=== PATIENT | female | born 1950 | race Hispanic/Latino ===

== ENCOUNTER 2018-06-29 20:17 | Observation (INO) | payer BC, MEDICARE, OTHER ==
[~2018-06-29] VITALS: Ht 152.4 cm; Wt 64.6 kg
[~2018-06-29 20:17] MED LIST: ASPIRIN EC81 MG PO; LIPITOR20 MG PO; LISINOPRIL10 MG PO; LOPRESSOR25 MG PO; METFORMIN HCL500 MG PO; ULTRAM50 MG PO
--- NOTE | 2018-06-29 21:33 | Diagnostic Imaging Report ---
EXAMINATION: CHEST SINGLE (NOT PORTABLE) INDICATION: Chest pain. COMPARISON: Chest x-ray 10/22/2011 FINDINGS: AP view TUBES and LINES: None. LUNGS: Lungs are well inflated. Lungs are clear. There is no evidence of pneumonia or pulmonary edema. PLEURA: No pleural effusion or pneumothorax. HEART AND MEDIASTINUM: Tortuous aorta with calcifications. The cardiac silhouette is unremarkable. BONES AND SOFT TISSUES: No acute osseous lesion. Soft tissues are unremarkable. UPPER ABDOMEN: No free air under the diaphragm. IMPRESSION: No acute thoracic abnormality. Signed by: DR. Dirk Laboy MD on 06/29/2018 9:29 PM
[2018-06-29] MEDS ORDERED: KETOROLAC TROMETHAMINE 30 MG/ML VIAL IV STA (21:59)
[2018-06-29 22:19] LABS: BASOPHILS # (AUTO) 0.1 (0.0-0.1); BASOPHILS % 0.6 % (0.0-1.0); EOSINOPHILS # (AUTO) 0.8 (0.0-0.4); EOSINOPHILS % 10.4 % (0.0-6.0); HEMATOCRIT 38.6 % (34.2-44.1); HEMOGLOBIN 13.3 g/dL (12.0-16.0); LYMPHOCYTES # (AUTO) 3.4 (1.0-3.2); LYMPHOCYTES % 42.3 % (18.0-39.1); MEAN CORPUSCULAR HEMOGLOBIN 31.5 pg (28-32); MEAN CORPUSCULAR HGB CONC 34.5 g/dL (31-35); MEAN CORPUSCULAR VOLUME 91.5 fL (81-99); MONOCYTES # (AUTO) 0.5 (0.2-0.8); MONOCYTES % 5.8 % (4.4-11.3); NEUTROPHILS # (AUTO) 3.3 (2.1-6.9); NEUTROPHILS % 40.6 % (38.7-80.0); PLATELET COUNT 161 x10e3/uL (140-360); RED BLOOD COUNT 4.22 x10e6/uL (3.6-5.1); RED CELL DISTRIBUTION WIDTH 12.8 % (11.7-14.4)
[2018-06-29 22:24] LABS: INR 0.9
[2018-06-29 22:34] LABS: ALANINE AMINOTRANSFERASE 59 IU/L (0-55); ALKALINE PHOSPHATASE 62 IU/L (40-150); ANION GAP 15.8 mmol/L (8-16); BLOOD UREA NITROGEN 13 mg/dL (7-26); BUN/CREATININE RATIO 16 (6-25); CALCIUM 9.9 mg/dL (8.4-10.2); CARBON DIOXIDE 22 mmol/L (22-29); CHLORIDE 102 mmol/L (98-107); CREATINE KINASE 86 IU/L (29-168); CREATININE, SERUM 0.81 mg/dL (0.57-1.11); EST GLOMERULAR FILTRATION RATE > 60 ML/MIN (60-); GLUCOSE 162 mg/dL (74-118); POTASSIUM 3.8 mmol/L (3.5-5.1); SODIUM 136 mmol/L (136-145)
[2018-06-29 23:51] LABS: BACTERIA,URINE RARE /HPF; BILIRUBIN,URINE NEGATIVE (NEGATIVE); CLARITY,URINE HAZY (CLEAR); COLOR,URINE YELLOW (YELLOW); EPITHELIAL CELLS,URINE RARE /LPF; KETONES,URINE NEGATIVE (NEGATIVE); LEUKOCYTE ESTERASE ,URINE NEGATIVE (NEGATIVE); NITRITE,URINE NEGATIVE (NEGATIVE); PROTEIN,URINE DIPSTICK NEGATIVE (NEGATIVE); RBC,URINE 0-5 /HPF (0-5); URINE UROBILINOGEN 0.2 mg/dL (0.2 - 1)
[2018-06-30] VITALS (14 sets, daily range): BP systolic 124–165; BP diastolic 64–86
[2018-06-30] MEDS ORDERED: MORPHINE SULFATE 2 MG/ML SYR IV PRN (00:15)
[2018-06-30] MEDS ORDERED: ONDANSETRON HCL INJ 2 MG/ML VIAL IV PRN ×2 (00:15→14:00)
[2018-06-30] MEDS ORDERED: NITROGLYCERIN 0.4 MG SUBL SL PRN (00:15)
[2018-06-30] MEDS ORDERED: SODIUM CHLORIDE 0.9% 1000ML 1,000 ML IV SCH ×3 (00:15→13:47)
[2018-06-30] MEDS ORDERED: MORPHINE SULFATE INJ 4 MG/ML INJ ONE (01:43)
--- OUTSIDE RECORDS SUMMARY | 2018-06-30 03:56 | XMS REPORT ---
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 Allergies, Adverse Reactions, Alerts This patient has no known allergies or adverse reactions. Medications This patient has no known medications. Results Test Description Test Time Test Comments Text Results Atomic Results Result Comments CHEST SINGLE (NOT PORTABLE) 2018-06-29 21:27:00 [place] [address] Patient Name: DIANA TANG MR #: [id number] : 1950 Age/Sex: 68/F Req #: [id number] Adm Physician: Ordered by: TESSA ZAMORA MD Report #: [id number] Location: ER Room/Bed: Procedure: [id number] DX/CHEST SINGLE (NOT PORTABLE) Exam Date: 06/29/18 Exam Time: 2051 REPORT STATUS: Signed EXAMINATION: CHEST SINGLE (NOT PORTABLE) INDICATION: Chest pain. COMPARISON: Chest x-ray 10/22/2011 FINDINGS: AP view TUBES and LINES: None. LUNGS: Lungs are well inflated. Lungs are clear. There is no evidence of pneumonia or pulmonary edema. PLEURA: No pleural effusion or pneumothorax. HEART AND MEDIASTINUM: Tortuous aorta with calcifications. The cardiac silhouette is unremarkable. BONES AND SOFT TISSUES: No acute osseous lesion. Soft tissues are unremarkable. UPPER ABDOMEN: No free air under the diaphragm. IMPRESSION: No acute thoracic abnormality. Signed by: DR. Dirk Carranza MD on 06/29/2018 9:29 PM Dictated By: DIRK CARRANZA MD 28 Transcribed By: THEO on 06/29/182128 COPY TO: TESSA ZAMORA MD
[2018-06-30] MEDS ORDERED: NITROGLYCERIN 2% OINT 1 GM PKT TOP SCH (06:00)
[2018-06-30 06:37] LABS: BASOPHILS % 0.5 % (0.0-1.0); EOSINOPHILS # (AUTO) 0.9 (0.0-0.4); EOSINOPHILS % 12.1 % (0.0-6.0); HEMOGLOBIN 12.5 g/dL (12.0-16.0); LYMPHOCYTES # (AUTO) 3.5 (1.0-3.2); LYMPHOCYTES % 48.1 % (18.0-39.1); MEAN CORPUSCULAR HEMOGLOBIN 31.1 pg (28-32); MEAN CORPUSCULAR HGB CONC 33.8 g/dL (31-35); MONOCYTES # (AUTO) 0.4 (0.2-0.8); MONOCYTES % 5.9 % (4.4-11.3); NEUTROPHILS # (AUTO) 2.4 (2.1-6.9); NEUTROPHILS % 33.3 % (38.7-80.0); PLATELET COUNT 136 x10e3/uL (140-360); RED BLOOD COUNT 4.02 x10e6/uL (3.6-5.1); RED CELL DISTRIBUTION WIDTH 12.8 % (11.7-14.4)
[2018-06-30] MEDS ORDERED: TRAMADOL HCL 50 MG TAB PO PRN (07:00)
[2018-06-30 07:10] LABS: ANION GAP 12.9 mmol/L (8-16); BLOOD UREA NITROGEN 14 mg/dL (7-26); BUN/CREATININE RATIO 19 (6-25); CALCIUM 8.9 mg/dL (8.4-10.2); CARBON DIOXIDE 22 mmol/L (22-29); CHLORIDE 106 mmol/L (98-107); CREATININE, SERUM 0.72 mg/dL (0.57-1.11); EST GLOMERULAR FILTRATION RATE > 60 ML/MIN (60-); GLUCOSE 137 mg/dL (74-118); POTASSIUM 3.9 mmol/L (3.5-5.1); SODIUM 137 mmol/L (136-145)
[2018-06-30 07:12] LABS: CHOL/HDL RATIO 4.8 (3.0-3.6)
[2018-06-30] MEDS ORDERED: HYDRALAZINE HCL 20 MG/ML VIAL IV PRN (07:15)
[2018-06-30] MEDS ORDERED: ACETAMINOPHEN 325 MG TAB PO PRN (07:15)
--- NOTE | 2018-06-30 07:17 | NUR ---
walking rounds with nicole horne
[2018-06-30] MEDS ORDERED: INSULIN LISPRO 100 UNIT/1 ML 3ML VIAL SQ SCH (07:30)
[2018-06-30] MEDS ORDERED: METOCLOPRAMIDE HCL 10 MG/2ML VIAL IV SCH (07:30)
[2018-06-30] MEDS ORDERED: FAMOTIDINE 20 MG TAB PO SCH ×2 (07:30→09:00)
[2018-06-30] MEDS ORDERED: DEXTROSE 50% SYRINGE 50 ML IV PRN (07:30)
[2018-06-30 07:33] LABS: CREATINE KINASE MB 0.7 ng/mL (0-5.0)
[2018-06-30] MEDS ORDERED: METFORMIN HCL 500 MG TAB PO SCH (08:00)
[2018-06-30] MEDS ORDERED: ASPIRIN 81 MG ENTERIC COATED PO SCH (09:00)
[2018-06-30] MEDS ORDERED: LISINOPRIL 10 MG TAB PO SCH (09:00)
[2018-06-30] MEDS ORDERED: CLOPIDOGREL BISULFATE 75 MG TAB PO NR (11:15)
--- NOTE | 2018-06-30 11:31 | NUR ---
walking rounds with ozzie rivera
--- NOTE | 2018-06-30 11:54 | NUR ---
DR. DALY SPOKE WITH PT AT [facility] CARDIAC CATH.
[2018-06-30] MEDS ORDERED: IOPAMIDOL 370 MG/ML 200 ML INFUS..BTL INJ ONE (12:05)
[2018-06-30] MEDS ORDERED: HEPARIN SOD/SOD CHLORIDE 2,000 ML ONE (12:05)
[2018-06-30] MEDS ORDERED: MIDAZOLAM HCL 2 MG/2 ML VIAL ONE (12:05)
[2018-06-30] MEDS ORDERED: FENTANYL CITRATE/PF 100MCG/2 ML INJ ONE (12:05)
[2018-06-30] MEDS ORDERED: IOPAMIDOL 300MG/ML 100 ML INFUS..BTL IV ONE (12:06)
[2018-06-30] MEDS ORDERED: SODIUM CHLORIDE 0.9% 1000ML 1,000 ML ONE ×2 (12:06→12:50)
[2018-06-30] MEDS ORDERED: LIDOCAINE HCL 1% LOCAL INJ 20 ML VIAL ONE (12:06)
--- NOTE | 2018-06-30 12:17 | NUR ---
CONSENT FOR PROCEDURE SIGNED AND PLACED ON CLIPBOARD
--- NOTE | 2018-06-30 12:50 | NUR ---
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
[2018-06-30] MEDS ORDERED: BIVALRIUDIN 250 MG/VIAL VIAL IV ONE (13:18)
[2018-06-30] MEDS ORDERED: SODIUM CHLORIDE 0.9% 50ML 50 ML ONE (13:18)
--- NOTE | 2018-06-30 14:10 | Consultation ---
DATE OF CONSULTATION: June 30, 2018 REASON FOR CONSULTATION: Chest pain. CHIEF COMPLAINT: Chest pain. HPI: This is a 68-year-old female with a history of CAD, status post left heart catheterization in June 2016 showing 60% LAD disease, hypertension, diabetes, hyperlipidemia, reflux, fibromyalgia. Patient presents to [facility] ER with complaints of retrosternal chest pain. Cardiology was consulted. Patient seen in the ER with at the bedside. Patient reports that she has been having chest pain since for several days. Reports it is a sharp pressure, retrosternal and radiates to the left arm and jaw accompanied with shortness of breath and nausea. Reports symptoms have been escalating in the past couple of days. In fact, now states with minimal exertion chest pain reappears. A long discussion with the patient regarding treatment options. Patient wants definitive testing, i.e., left heart catheter. Risks and benefits discussed at length with the patient and family member at bedside. Of note, the patient reports currently having some mild chest pain at rest. HOME MEDICATIONS: Include lisinopril daily and metformin 500 mg twice a day. ALLERGIES: LYRICA AND CODEINE. PAST MEDICAL HISTORY: CAD, status post left heart catheterization in June 2016 showing a 60% LAD disease and about 30% to 40% RCA disease, hypertension, diabetes, hyperlipidemia, reflux, history of fatty liver, degenerative joint disease, fibromyalgia. SURGICAL HISTORY: Includes tubal ligation and breast biopsy. SOCIAL HISTORY: She is . She is a nonsmoker and nonalcoholic drinker. 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 FAMILY HISTORY: Mother at the age of 84 apparently from complications of [place]. Father at age 66 apparently with history of diabetes and with also history of congestive heart failure. REVIEW OF SYSTEMS GENERAL: Denies any weight loss. Any fevers, chills, night sweats. HEENT: Positive for headaches. Denies any vision disturbances, any runny nose, any epistaxis, sore throat, stiff neck. PULMONARY: Positive for shortness of breath, dyspnea on exertion, easy fatigability. Denies any hemoptysis. Denies any coughing. CARDIAC: Chest pain as above. Denies any palpitations, any PND, orthopnea. GI: Reports good appetite. Positive for nausea during chest pain episodes. Denies any hematemesis or any melena. : Denies any frequency, urgency or any hematuria, dysuria. HEMATOLOGY: Denies any easy bruising or bleeding. MUSCULOSKELETAL: Positive for generalized joint pains. Denies any lower extremity numbness or tingling. NEUROLOGICAL: Positive for headaches. Denies any fainting, any syncopal episodes, any dizziness, lightheadedness. PHYSICAL EXAMINATION VITALS: Height 62 inches, weight 142 pounds, BMI 25. Vital signs currently are temperature 98.5, pulse 46, respiratory rate 16, blood pressure 122/70, pulse ox 98%. GENERAL: Appears stated age. Reliable informant. In no acute distress. HEENT: Normocephalic. Pupils are equal and reactive. Extraocular movements intact. Trachea midline. Oral mucosa pink. No JVD or thyromegaly noted. l CHEST: Clear to auscultation bilaterally. No wheezes or rales. HEART: Regular rate and rhythm. PMI in the 5th intercostal space. ABDOMEN: Soft, nontender and nondistended. No organomegaly noted. EXTREMITIES: No lower extremity edema. VASCULAR: Plus 2 bilateral radial pulses and +1 DP and PT bilateral pulses. NEURO: Cranial nerves II-XII seem intact. LABS: Sodium 137, potassium 3.9, chloride 106, bicarb 22, BUN 14, creatinine 0.7. Troponin 0.005 and 0.002. BNP 67. HEMATOLOGY: White count 7, hemoglobin 12.5, hematocrit 37, and platelets 136,000. Chest x-ray with no acute abnormalities. EKG is normal sinus rhythm. ASSESSMENT AND PLAN 1. Coronary artery disease with unstable angina. 2. Hypertension. 3. Diabetes. 4. Hyperlipidemia. PLAN: The patient presents with very typical exertional chest pain, now becoming unstable occurring at rest. The patient with known left heart catheterization showing CAD with 60% LAD lesion about 2 years ago. The patient is very concerned and is wanting definitive answers and treatment strategy. Will continue aspirin therapy. Will load the patient with Plavix 600 mg and 75 mg daily. Will hold beta tameka for now since the patient is bradycardic. Will start statin therapy. Risks and benefits regarding left heart catheterization discussed with the patient and family members at bedside. Questions answered. The patient wishes to proceed with left heart catheterization. Thank you very much for this consult. Further recommendations after left heart catheterization. SEEN AND EVALUATED IN ER, TYPICAL ACS SYMPTOMS WILL RECOMMEND URGENT CATH/ PCI DICTATED BY DMITRIY CONWAY NP Job#: [id number] BRIT BARILLAS
--- NOTE | 2018-06-30 14:10 | NUR ---
SLEEPING WITH RESPIRATIONS EVEN AND NONLABORED, EASILY AWAKENED. AAOX3, VSS. SITE TO R GROIN D C/D/I NO S/S OF BLEEDING OR HEMATOMA NOTED. DP/PT PULSES PALPABLE BILATERALLY, BRISK CAPILLARY REFILL. DENIED PAIN OR NEEDS AT THIS TIME. BED IN LOWEST POSITION, SIDE RAILS UP, CALL LIGHT WITHIN REACH.
[2018-06-30] MEDS ORDERED: MORPHINE SULFATE INJ 4 MG/ML INJ IV PRN (14:15)
--- NOTE | 2018-06-30 14:40 | NUR ---
AAOX3, VSS. SITE TO R GROIN D C/D/I NO S/S OF BLEEDING OR HEMATOMA NOTED. DP/PT PULSES PALPABLE BILATERALLY, BRISK CAPILLARY REFILL. CARDIAC DIET FINGER FOOD ORDERED. DENIED PAIN OR NEEDS AT THIS TIME. BED IN LOWEST POSITION, SIDE RAILS UP, CALL LIGHT WITHIN REACH.
--- NOTE | 2018-06-30 14:55 | NUR ---
AAOX3, VSS. SITE TO R GROIN D C/D/I NO S/S OF BLEEDING OR HEMATOMA NOTED. DP/PT PULSES PALPABLE BILATERALLY, BRISK CAPILLARY REFILL. DENIED PAIN OR NEEDS AT THIS TIME. BED IN LOWEST POSITION, SIDE RAILS UP, CALL LIGHT WITHIN REACH. PENDING ROOM # ASSIGNMENT.
--- NOTE | 2018-06-30 15:08 | Operative Report ---
DATE OF PROCEDURE: June 30, 2018 PROCEDURES PERFORMED 1. Left heart cardiac catheterization with coronary angiography. 2. Left ventriculography. 3. Percutaneous coronary intervention of the right posterior descending artery culprit lesion. 4. Angio-Seal closure of the right common femoral arteriotomy. INDICATION FOR PROCEDURE: This is a 68-year-old lady with history of hypertension, hypercholesterolemia, type 2 diabetes, known coronary artery disease, who presents to this institution with escalating chest pain symptoms at rest, concerning for unstable angina picture and CCS 4 symptoms. Patient was taken from the emergency room urgently to the cardiac catheterization laboratory. DESCRIPTION OF PROCEDURE: After risks, benefits, pros and cons of today's procedure were explained, patient agreed to proceed. Patient was brought to the cardiac catheterization laboratory where both groins were prepped and draped in the usual sterile fashion. Lidocaine 1% solution was used to numb the right groin region. Access to the right femoral artery was obtained, and a 4-Bahraini short femoral sheath was placed. Selective coronary angiography of the samish left and right coronary arteries was performed with a JL-4 and 3DRC diagnostic catheters respectively. An angled pigtail was placed into the ventricle for ventriculography and hemodynamic assessment of ventricular filling pressures. After noting a 95% hazy proximal right PDA lesion, this was thought to be the culprit lesion. We decided to proceed with intervention. Patient was already preloaded with 600 mg of Plavix in the emergency room. IV Angiomax was given for systemic anticoagulation. A 4-Bahraini femoral sheath was upsized to a 6-Bahraini femoral sheath. We took a 6-Bahraini 3DRC guiding catheter, selected the right coronary artery. Utilizing 180-cm Runthrough guidewire, we successfully crossed the lesion. We direct stented the lesion with a Resolute Son 2.25 x 15-mm drug-eluting stent deployed up to 15 atmospheres of pressure for 30 seconds. Final angiography revealed 0% residual stenosis, YRIS 3 flow and no complications. At the conclusion of the case, femoral angiogram was performed, revealing a femoral artery stick, and a 6-Bahraini Angio-Seal closure device was successfully deployed, achieving hemostasis. COMPLICATIONS: None. ESTIMATED BLOOD LOSS: Minimal. FINDINGS 1. The left main has 30% to 40% proximal lesion gives rise to an LAD and circumflex branch. 2. The LAD has a 60% proximal lesion followed by a long and diffusely diseased mid LAD at 60% throughout. The distal LAD bifurcates into a second diagonal branch and terminal LAD which rapidly tapers. The LAD proper has an 80% focal stenosis distally where the vessel is about 1.5 to 2 mm in diameter. 3. The left circumflex artery is essentially one large bifurcating mid marginal branch with just mild luminal irregularities. 4. The RCA is dominant, gives rise to a moderate -caliber right PDA and a moderate-caliber right PLV branch. There is a 95% horizontally proximal right PDA stenosis, which appears to be the culprit lesion. 5. The left ventricular ejection fraction is 65% with end-diastolic pressure of 13 mmHg. There is no significant LV to aortic pullback gradient. INTERVENTION SUMMARY: Successful treatment of the 95% proximal right PDA stenosis with implantation of a Resolute Son 2.25 x 15-mm drug-eluting stent resulting in 0% residual stenosis, YRIS 3 flow and no complications. PLANS/RECOMMENDATIONS 1. Aspirin and Plavix therapy. 2. Statin therapy. 3. Aggressive risk-factor modification medical therapy. 4. Six-hour bed rest post catheterization today. 5. Overnight management and observation. Job#: [id number] RAY
--- NOTE | 2018-06-30 15:25 | NUR ---
AAOX3, VSS. SITE TO R GROIN D C/D/I NO S/S OF BLEEDING OR HEMATOMA NOTED. DP/PT PULSES PALPABLE BILATERALLY, BRISK CAPILLARY REFILL. DENIED PAIN OR NEEDS AT THIS TIME. BED IN LOWEST POSITION, SIDE RAILS UP, CALL LIGHT WITHIN REACH.
--- NOTE | 2018-06-30 17:30 | NUR ---
Bed rest completed. Patient sitting up in stretcher. Dressing to right groin remains clean,dry, and intact without signs or symptoms of active bleeding at this time. No distress noted.
[2018-06-30 19:24] LABS: CREATINE KINASE 62 IU/L (29-168)
--- NOTE | 2018-06-30 19:55 | NUR ---
RECEIVED PT TO UNIT ROOM 210 VIA STRETCHER AT THIS TIME,PT AMBULATED TO BED FROM STRETCHER WITHOUT ANY DIFFICULTY.PT IS AAO X 3.NO S/S OF DISTRESS NOTED.RESPIRATIONS EVEN/NON LABORED.PT DENIES ANY CHEST PAIN/SHORTNESS OF BREATH AT THIS TIME.RIGHT GROIN SITE NOTED WITH DRESSING C/D/I,NO BLEEDING OR S/S OF HEMATOMA NOTED.PEDAL PULSES PALPABLE BILATERALLY.ORIENTED PT TO ROOM,BATHROOM AND CALL LIGHT AT THIS TIME.INSTRUCTED PT TO CALL FOR ASSISTANCE NEEDED BY USING CALL LIGHT.PT VERBALIZED UNDERSTANDING.BED IN LOWEST/LOCKED POSITION.FAMILY MEMBERS AT BEDSIDE.CALL LIGHT WITHIN EASY REACH.
[2018-07-01 00:57] VITALS: BP 106/60
[2018-07-01 03:16] LABS: BASOPHILS # (AUTO) 0.1 (0.0-0.1); BASOPHILS % 0.7 % (0.0-1.0); EOSINOPHILS # (AUTO) 0.8 (0.0-0.4); EOSINOPHILS % 10.5 % (0.0-6.0); HEMATOCRIT 35.8 % (34.2-44.1); HEMOGLOBIN 12.2 g/dL (12.0-16.0); LYMPHOCYTES # (AUTO) 3.2 (1.0-3.2); LYMPHOCYTES % 44.4 % (18.0-39.1); MEAN CORPUSCULAR HGB CONC 34.1 g/dL (31-35); MEAN CORPUSCULAR VOLUME 91.1 fL (81-99); MONOCYTES # (AUTO) 0.5 (0.2-0.8); MONOCYTES % 7.3 % (4.4-11.3); NEUTROPHILS # (AUTO) 2.7 (2.1-6.9); PLATELET COUNT 139 x10e3/uL (140-360); RED BLOOD COUNT 3.93 x10e6/uL (3.6-5.1); RED CELL DISTRIBUTION WIDTH 12.5 % (11.7-14.4)
[2018-07-01 03:29] LABS: BLOOD UREA NITROGEN 17 mg/dL (7-26); BUN/CREATININE RATIO 22 (6-25); CALCIUM 9.3 mg/dL (8.4-10.2); CARBON DIOXIDE 25 mmol/L (22-29); CHLORIDE 105 mmol/L (98-107); CREATININE, SERUM 0.77 mg/dL (0.57-1.11); EST GLOMERULAR FILTRATION RATE > 60 ML/MIN (60-); GLUCOSE 168 mg/dL (74-118); MAGNESIUM 1.8 MG/DL (1.3-2.1); SODIUM 140 mmol/L (136-145)
[2018-07-01 03:33] LABS: B-TYPE NATRIURETIC PEPTIDE2 51.3 pg/mL (0-100)
[2018-07-01 03:46] LABS: ALBUMIN 3.5 g/dL (3.5-5.0); BILIRUBIN,DIRECT 0.1 mg/dL (0.0-0.5)
[2018-07-01 03:51] LABS: FREE T4 (FREE THYROXINE) 0.92 ng/dL (0.9-1.8); THYROID STIMULATING HORMONE 2.284 uIU/mL (0.350-4.940)
[2018-07-01] MEDS ORDERED: PLAVIX75 MG PO (05:06)
[2018-07-01] MEDS ORDERED: ASPIRIN325 MG PO (05:06)
[2018-07-01] MEDS ORDERED: LIPITOR20 MG PO (05:06)
[2018-07-01 06:43] VITALS: BP 123/69
--- NOTE | 2018-07-01 07:10 | NUR ---
REPORT GIVEN TO ONCOMING NURSE,WALKING ROUNDS MADE.PT RESTING IN BED WITH NO S/S OF DISTRESS.
--- NOTE | 2018-07-01 07:10 | NUR ---
RCD PT AT BED PT IS ALERT AND ORIENTED PT RESTING ON BED IV PATENT FAMILY AT BED SIDE BED LOW AND LOCKED CALL LIGHT IN REACH
[2018-07-01 08:00] VITALS: BP 123/69
[2018-07-01 08:22] VITALS: BP 154/65
[2018-07-01] MEDS ORDERED: CLOPIDOGREL BISULFATE 75 MG TAB PO SCH ×2 (09:00)
--- NOTE | 2018-07-01 12:39 | NUR ---
GAVE BEGUM LETTER GOT SIGNATURE FILED IN CHART WITH COPY LEFT WITH PATIENT AT BEDSIDE.
--- NOTE | 2018-07-01 12:54 | NUR ---
PT WENT HOME IN SAFE CONDITION WITH HER
[2018-07-01 13:11] VITALS: BP 160/74
--- NOTE | 2018-07-01 14:51 | Discharge Summary ---
ADMISSION DIAGNOSES 1. Chest pain. 2. Bradycardia. 3. Hypertension. 4. Type 2 diabetes. 5. Transaminitis. DISCHARGE DIAGNOSES 1. Chest pain. 2. Bradycardia. 3. Hypertension. 4. Type 2 diabetes. 5. Transaminitis. 6. Fatty liver. 7. Ruled out myocardial infarction. HISTORY: Patient has a history of hypertension, type 2 diabetes, GERD, T-spine DJD, and mitral valve prolapse. SURGICAL HISTORY: Tubal ligation and right breast biopsy. FAMILY HISTORY: Patient's son and daughter have diabetes. Patient's sister had a stroke. SOCIAL HISTORY: Noncontributory. HOSPITAL COURSE: A 68-year-old female complains of sharp intermittent centralized chest pain that radiated to her left arm, left leg and back. Pain began while sleeping and was associated with shortness of breath and dizziness. Nothing improved or worsened the pain. Patient had a cath in June of 2016 with moderate LAD disease with Dr. Figueroa. On admission, chest x-ray was negative. EKG showed sinus bradycardia with a rate of 56. Prelim echo showed EF of 60% to 65% with slight calcified AV and MV with trace TR. Dr. Figueroa was consulted, and the patient was taken to the photo lab specialist on June 30, 2018. Patient had a 95% proximal right PDA stenosis with implantation of a Resolute Son stent resulting in zero percent stenosis. Per cardiology, the patient was started on aspirin, Plavix, statin. Beta tameka was held due to bradycardia. Vital signs stable. Patient afebrile. Patient will discharge home and follow up with cardiology as discussed and primary care in 1-2 weeks. Patient understands discharge instructions and agrees to plan. DICTATED BY MARCI BURLESON NP ALEXX BAIRD MD Job#: [id number] [place]
== END 2018-07-01 12:54 | disposition home or self-care (01) ==
LOC: ER 20:17 → ERHOLD 06-30 03:53 → UNDOADMOB 06-30 03:53 → INTOOBSV 06-30 18:01 → MED/SURG2 06-30 18:01
PROVIDERS: ADMIT Internal Medicine Cardiovascular Disease; ATTEND Internal Medicine Cardiovascular Disease
DX: I25.110 Atherosclerotic heart disease of native coronary artery with unstable angina pectoris (principal); E11.9 Type 2 diabetes mellitus without complications; I10 Essential (primary) hypertension; K21.9 Gastro-esophageal reflux disease without esophagitis; E78.5 Hyperlipidemia, unspecified; R00.1 Bradycardia, unspecified; R74.0 Nonspecific elevation of levels of transaminase and lactic acid dehydrogenase [LDH]; Z83.3 Family history of diabetes mellitus; Z82.3 Family history of stroke; Z88.5 Allergy status to narcotic agent; Z88.8 Allergy status to other drugs, medicaments and biological substances; K76.0 Fatty (change of) liver, not elsewhere classified; I34.1 Nonrheumatic mitral (valve) prolapse
CPT/HCPCS: 93458; C9600; 36415; 71045; 80048; 80053; 80061; 80076; 81001; 82550; 82553; 82948; 83036; 83735; 83880; 84439; 84443; 84484; 85025; 85610; 85730; 92928; 93005; 93306; 99284; C1766; C1874; G0378; J0583; J1885; J2001; J2250; J2270; J7030; Q9967

== ENCOUNTER 2019-02-04 12:41 | Emergency (ER) | payer MEDICARE ==
[~2019-02-04] VITALS: Ht 152.4 cm; Wt 62.1 kg
[~2019-02-04 12:41] MED LIST changes: +ASPIRIN325 MG PO; +PLAVIX75 MG PO
[2019-02-04] MEDS ORDERED: ASPIRIN 81 MG CHEW TAB PO ONE (13:15)
[2019-02-04 13:54] LABS: BILIRUBIN,URINE NEGATIVE (NEGATIVE); CLARITY,URINE CLEAR (CLEAR); COLOR,URINE YELLOW (YELLOW); KETONES,URINE NEGATIVE (NEGATIVE); LEUKOCYTE ESTERASE ,URINE NEGATIVE (NEGATIVE); NITRITE,URINE NEGATIVE (NEGATIVE); PROTEIN,URINE DIPSTICK NEGATIVE (NEGATIVE); URINE UROBILINOGEN 0.2 mg/dL (0.2 - 1)
[2019-02-04 13:59] LABS: BASOPHILS % 0.6 % (0.0-1.0); EOSINOPHILS # (AUTO) 0.1 (0.0-0.4); EOSINOPHILS % 1.4 % (0.0-6.0); HEMATOCRIT 38.1 % (34.2-44.1); LYMPHOCYTES # (AUTO) 2.9 (1.0-3.2); LYMPHOCYTES % 40.9 % (18.0-39.1); MEAN CORPUSCULAR HGB CONC 34.1 g/dL (31-35); MEAN CORPUSCULAR VOLUME 90.7 fL (81-99); MONOCYTES # (AUTO) 0.5 (0.2-0.8); MONOCYTES % 6.3 % (4.4-11.3); NEUTROPHILS # (AUTO) 3.6 (2.1-6.9); NEUTROPHILS % 50.5 % (38.7-80.0); PLATELET COUNT 159 x10e3/uL (140-360); RED CELL DISTRIBUTION WIDTH 12.8 % (11.7-14.4)
[2019-02-04 14:09] LABS: TRANSITIONAL EPI CELLS,URINE RARE
[2019-02-04 14:17] LABS: ALANINE AMINOTRANSFERASE 28 IU/L (0-55); ALBUMIN 4.1 g/dL (3.5-5.0); ALBUMIN/GLOBULIN RATIO 1.1 (0.8-2.0); ALKALINE PHOSPHATASE 66 IU/L (40-150); ANION GAP 15.8 mmol/L (8-16); BLOOD UREA NITROGEN 22 mg/dL (7-26); BUN/CREATININE RATIO 28 (6-25); CALCIUM 9.6 mg/dL (8.4-10.2); CARBON DIOXIDE 22 mmol/L (22-29); CHLORIDE 102 mmol/L (98-107); CREATINE KINASE 74 IU/L (29-168); EST GLOMERULAR FILTRATION RATE > 60 ML/MIN (60-); GLUCOSE 149 mg/dL (74-118); LIPASE 38 U/L (8-78); POTASSIUM 3.8 mmol/L (3.5-5.1); SODIUM 136 mmol/L (136-145)
[2019-02-04 14:41] LABS: THYROID STIMULATING HORMONE 4.137 uIU/mL (0.350-4.940)
--- NOTE | 2019-02-04 14:52 | Diagnostic Imaging Report ---
EXAMINATION: CHEST SINGLE (PORTABLE) INDICATION: Chest pain COMPARISON: Chest radiograph 07/19/2018 FINDINGS: LINES/TUBES:EKG leads overlie the chest. LUNGS:The lungs are moderately inflated. No focal consolidation or pulmonary edema. PLEURA:No pleural effusion or pneumothorax. MEDIASTINUM:The cardiomediastinal silhouette appears unchanged in size and shape. Atherosclerotic calcifications of the thoracic aorta. BONES/SOFT TISSUES:No acute osseous injury. ABDOMEN:No free air under the diaphragm. IMPRESSION: No focal pneumonia or pulmonary edema. Signed by: Carin Silva MD on 02/04/2019 2:49 PM
[2019-02-04 15:34] LABS: INR 0.91; PARTIAL THROMBOPLASTIN TIME 24.5 seconds (23.8-35.5); PROTHROMBIN TIME 12.7 seconds (11.9-14.5)
[2019-02-04 16:14] VITALS: BP 155/78
== END 2019-02-04 16:22 | disposition home or self-care (01) ==
LOC: ER 12:41
DX: R07.89 Other chest pain (principal); R11.0 Nausea; I10 Essential (primary) hypertension; E11.65 Type 2 diabetes mellitus with hyperglycemia; K21.9 Gastro-esophageal reflux disease without esophagitis; I34.1 Nonrheumatic mitral (valve) prolapse; Z95.5 Presence of coronary angioplasty implant and graft
CPT/HCPCS: 36415; 71045; 80053; 81001; 82550; 82553; 83690; 83880; 84443; 84484; 85025; 85610; 85730; 87086; 93005; 99284

== ENCOUNTER → 2021-02-02 | Outpatient (CLI) | payer MEDICARE | LOC: CT 01-24 11:41 | PROVIDERS: ATTEND Family Medicine | DX: R07.9 Chest pain, unspecified (principal) | CPT/HCPCS: 70551; 71250; 77067 ==

== ENCOUNTER 2021-02-11 18:52 | Emergency (ER) | payer MEDICARE ==
[~2021-02-11] VITALS: Ht 152.4 cm; Wt 63.5 kg
[2021-02-11] MEDS ORDERED: ACETAMINOPHEN 325 MG TAB PO ONE (20:15)
== END 2021-02-11 23:55 | disposition home or self-care (01) ==
LOC: ER 20:03
DX: R50.9 Fever, unspecified (principal); R05 Cough; R11.0 Nausea; U07.1 COVID-19; E11.9 Type 2 diabetes mellitus without complications; I34.1 Nonrheumatic mitral (valve) prolapse
CPT/HCPCS: 71045; 99283; U0002

== ENCOUNTER → 2024-10-15 | Outpatient (REF) | payer MEDICARE ==
[~2024-10-15] MED LIST changes: +IOPAMIDOL 370 MG/ML 100 ML INFUS..BTL INJ ONE
[2024-10-15 13:32] LABS: CREATININE, SERUM 0.85 mg/dL (0.57-1.11)
== END ==
LOC: CT 12:32
PROVIDERS: ATTEND Family Medicine
DX: R79.1 Abnormal coagulation profile (principal); R07.9 Chest pain, unspecified
CPT/HCPCS: 36415; 71260; 82565; 84520; Q9967